=== PATIENT | female | born 1960 | race Caucasian/White ===

== ENCOUNTER 2017-03-31 10:46 | Emergency (ER) | payer BC ==
[2017-03-31 11:16] VITALS: BP 110/67
--- NOTE | 2017-03-31 11:28 | UC ---
Complaint Female HPI - HPI Summary HPI Summary: complaint of cyst on left labia that started approx 7 days ago went to PCP on 03/31/17 dx with cyst started on ceftin and warm compresses cyst isn't bigger but feels more tender tenderness in left groin has continued cannot work tonight d/t pain taking tylenol without relief denies fever - History Of Current Complaint Chief Complaint: UCGU Stated Complaint: PERSONAL Time Seen by Provider: 03/31/17 11:05 Hx Obtained From: Patient Hx Last Menstrual Period: 2 yrs - Allergies/Home Medications Allergies/Adverse Reactions: Allergies Allergy/AdvReac Type Severity Reaction Status Date / Time Lisinopril AdvReac Coughing Verified 03/31/17 11:10 NSAIDs AdvReac Bleeding Verified 03/31/17 11:10 Home Medications: Home Medications Acetaminophen TAB* [Tylenol TAB*] 325 mg PO Q4H PRN 03/31/17 [History Confirmed 03/31/17] Calcium Carbonate-Vitamin D [Calcium 600 + D 600-400 mg-Unit] 1 tab PO 1200 08/07 [History Confirmed 03/31/17] Cyanocobalamin TAB* [Vitamin B12 TAB*] 1,250 mcg PO QAM 03/31/17 [History Confirmed 03/31/17] Escitalopram (NF) [Lexapro 10 mg (NF)] 10 mg PO 1200 03/31/17 [History Confirmed 03/31/17] Ferrous Sulfate TAB* 325 mg PO 1200 03/31/17 [History Confirmed 03/31/17] Misoprostol TAB* [Cytotec TAB*] 200 mcg PO QID 03/31/17 [History Confirmed 03/31] Pantoprazole TAB (NF) [Protonix TAB (NF)] 40 mg PO BID 03/31/17 [History Confirmed 03/31/17] traZODone TAB* [Desyrel TAB*] 50 mg PO BEDTIME 03/31/17 [History Confirmed 03/31] PMH/Surg Hx/FS Hx/Imm Hx Previously Healthy: No - labial cyst GI/ History: Gastroesophageal Reflux - Surgical History Surgical History: Yes Surgery Procedure, Year, and Place: Gastric Bypass, 2012, [facility]. Herniorrhaphies x 3. Tubal Ligation. Breast Augmentation and Tummy Tuck - Family History Known Family History: Positive: None Negative: Cardiac Disease, Hypertension, Diabetes - Social History Occupation: Employed Full-time Lives: With Family Alcohol Use: Occasionally Substance Use Type: None Smoking Status (MU): Never Smoked Tobacco - Immunization History Most Recent Influenza Vaccination: July 2016 Review of Systems Constitutional: Negative Skin: Other - cyst lef tlabia Eyes: Negative ENT: Negative Respiratory: Negative Cardiovascular: Negative Gastrointestinal: Negative Genitourinary: Negative Motor: Negative Neurovascular: Negative Musculoskeletal: Negative Neurological: Negative Psychological: Negative All Other Systems Reviewed And Are Negative: Yes Physical Exam Triage Information Reviewed: Yes Appearance: Well-Nourished, Pain Distress Vital Signs: Initial Vital Signs Temp 98.3 F 03/31/17 11:06 Pulse 64 03/31/17 11:06 Resp 16 03/31/17 11:06 BP 110/67 03/31/17 11:06 Pulse Ox 100 03/31/17 11:06 Vital Signs Reviewed: Yes Eyes: Positive: Conjunctiva Clear ENT: Positive: Pharynx normal, TMs normal Neck: Positive: No Lymphadenopathy Respiratory: Positive: Lungs clear, Normal breath sounds, No respiratory distress, No accessory muscle use Cardiovascular: Positive: RRR, No Murmur, Pulses Normal Abdomen Description: Positive: Nontender, Soft Bowel Sounds: Positive: Present Musculoskeletal: Positive: No Edema Psychological Exam: Normal Skin Exam: Other - left labia- large Procedures - Incision and Drainage Anesthesia: Topical Instrument(s): Needle Packing: Other - sterile dressing Complaint Female Dx - Course Course Of Treatment: exam completed. I & D of bartholin cysts with needle yielded large amount of serosanguinous fluid- abscess decompressed. culture sent. will change from ceftin to bactrim. tylenol #3 for pain and followup with PCP on Sunday04/02/17 - Differential Dx/Diagnosis Differential Diagnosis/HQI/PQRI: Bartholin Cyst Provider Diagnoses: bartholin cysts Left labia Discharge - Discharge Plan Condition: Stable Disposition: HOME Prescriptions: Acetaminop/Codeine 30 MG TAB* [Tylenol/Codeine 30 MG TAB*] 1 tab PO Q6H PRN #12 tab MDD 4 PRN Reason: Pain Sulfamethox/Trimethoprim DS* [Bactrim DS 800/160 TAB*] 1 tab PO BID #14 tab Patient Education Materials: Bartholin Cyst (ED) Forms: *Work Release Referrals: Mundo Espino MD [Primary Care Provider] - Additional Instructions: Please stop ceftin and start Bactrim as directed continue to use warm washcloth or sitzbath 2-3x day Increase fluids and rest Take acetaminophen or ibuprofen for fever or pain Please review your discharge instructions. If your symptoms do not improve please call your primary care provider or return to urgent care.
[2017-03-31] MEDS ORDERED: Lidocaine 2% JELLY* 6 ML JELLY TOPICAL ONE (11:36)
[2017-03-31] MEDS ORDERED: Lidocaine 2.5%/Prilocain 2.5%* 5 GM TUBE ONE (11:38)
[2017-03-31] MEDS ORDERED: Lidocaine 2.5%/Prilocain 2.5%* 5 GM TUBE TOPICAL ONE (11:42)
--- NOTE | 2017-04-02 11:43 | UC ---
Progress - Progress Note Progress Note: please notify pt of culture results
== END 2017-03-31 12:24 | disposition home or self-care (01) ==
LOC: UCCORT 10:46
DX: N75.0 Cyst of Bartholin's gland (principal); K21.9 Gastro-esophageal reflux disease without esophagitis
CPT/HCPCS: 56405; 56420; 87070; 87077; 87186; 99212; A9270-GY; G0463

== ENCOUNTER 2017-06-19 12:51 | Emergency (ER) | payer BC ==
[2017-06-19 14:15] VITALS: BP 125/80
--- NOTE | 2017-06-19 14:46 | RAD ---
Indication: Right knee pain. 4 views of the right knee demonstrates joint space narrowing in the medial compartment. No fracture is identified. No joint effusion is noted. IMPRESSION: Joint space narrowing medial compartment of the right knee without fracture.
--- NOTE | 2017-06-19 14:54 | UC ---
Knee Pain HPI - HPI Summary HPI Summary: Pt reports that 2 days ago she tripped and fell over a dog/baby gate and fell onto hands and knees from standing position.Pt reports that right knee is swollen, brusied and she experiences sudden onset of sharp shooting pains while ambulating. Pt is concerned about possible fracture - History of Current Complaint Chief Complaint: UCLowerExtremity Stated Complaint: RIGHT KNEE PAIN S/P FALL Time Seen by Provider: 06/19/17 14:18 Hx Obtained From: Patient Hx Last Menstrual Period: 2 yrs ?: No Onset/Duration: Sudden Onset Severity Initially: Mild Severity Currently: Mild Character: Sharp, Dull Aggravating Factor(s): Prolonged Standing Alleviating Factor(s): Rest, Position Associated Signs And Symptoms: Positive: Swelling, Bruising Able to Bear Weight: Yes - Risk Factors Septic Arthritis Risk Factor: Negative Gout Risk Factor: Age ^ 40 - Allergies/Home Medications Allergies/Adverse Reactions: Allergies Allergy/AdvReac Type Severity Reaction Status Date / Time Lisinopril AdvReac Coughing Verified 06/19/17 14:06 NSAIDs AdvReac Bleeding Verified 06/19/17 14:06 PMH/Surg Hx/FS Hx/Imm Hx Previously Healthy: Yes - Surgical History Surgical History: Yes Surgery Procedure, Year, and Place: Gastric Bypass, 2012, [facility]. Herniorrhaphies x 3. Tubal Ligation. Breast Augmentation and Tummy Tuck - Family History Known Family History: Negative: Cardiac Disease, Hypertension, Diabetes - Social History Occupation: Employed Full-time Lives: With Family Alcohol Use: Rare Substance Use Type: None Smoking Status (MU): Never Smoked Tobacco Have You Smoked in the Last Year: No - Immunization History Most Recent Influenza Vaccination: July 2016 Review of Systems Constitutional: Negative Skin: Bruising Eyes: Negative ENT: Negative Respiratory: Negative Cardiovascular: Negative Gastrointestinal: Negative, Abdominal Pain Genitourinary: Negative Motor: Other - pain with ROm rigth knee Neurovascular: Negative Musculoskeletal: Arthralgia - right knee, Edema - right knee, Other: - bruising right knee Neurological: Negative Psychological: Negative All Other Systems Reviewed And Are Negative: Yes Physical Exam Triage Information Reviewed: Yes Appearance: Well-Appearing Vital Signs: Initial Vital Signs Temp 98.7 F 06/19/17 14:07 Pulse 82 06/19/17 14:07 Resp 18 06/19/17 14:07 BP 125/80 06/19/17 14:07 Pulse Ox 100 06/19/17 14:07 Eye Exam: Normal ENT Exam: Normal Neck exam: Normal Respiratory Exam: Normal Cardiovascular Exam: Normal Musculoskeletal Exam: Other Musculoskeletal: Positive: Edema @ - anterior right knee, Other: - bruising right knee anterior distal to knee cap Neurological Exam: Normal Psychological Exam: Normal Skin Exam: Other - bruising, right anterior knee, distal to knee cap Knee Pain Course/Dx - Differential Dx/Diagnosis Differential Diagnosis/HQI/PQRI: Contusion, Fracture (Closed) Provider Diagnoses: right knee contusion Discharge - Discharge Plan Condition: Stable Disposition: HOME Patient Education Materials: Contusion in Adults (ED), Knee Pain (ED) Referrals: Mary Wetzel MD [Primary Care Provider] - If Needed
== END 2017-06-19 15:06 | disposition home or self-care (01) ==
LOC: UCCORT 12:51
DX: S80.01XA Contusion of right knee, initial encounter (principal); W18.09XA Striking against other object with subsequent fall, initial encounter; Y93.9 Activity, unspecified; Y92.9 Unspecified place or not applicable; Z98.84 Bariatric surgery status; Z88.6 Allergy status to analgesic agent
CPT/HCPCS: 99211; G0463

== ENCOUNTER 2017-10-22 19:47 | Emergency (ER) | payer BC ==
--- NOTE | 2017-10-22 20:01 | UC ---
Upper Extremity HPI - HPI Summary HPI Summary: 57 YEAR OLD FEMALE PRESENTS WITH COMPLAINS OF MASS ON HER RIGHT INDEX FINGER. - History of Current Complaint Stated Complaint: RIGHT INDEX FINGER PAIN Time Seen by Provider: 10/22/17 20:00 Hx Obtained From: Patient Hx Last Menstrual Period: 2 yrs Onset/Duration: Gradual Onset, Lasting Days Severity Initially: Moderate Severity Currently: Moderate Pain Scale Used: 0-10 Numeric - 0 - Allergies/Home Medications Allergies/Adverse Reactions: Allergies Allergy/AdvReac Type Severity Reaction Status Date / Time Lisinopril AdvReac Coughing Verified 10/22/17 20:07 NSAIDs AdvReac Bleeding Verified 10/22/17 20:07 Home Medications: Home Medications Alendronate (NF) [Fosamax (NF)] 35 mg PO Q7D 10/22/17 [History Confirmed ] PMH/Surg Hx/FS Hx/Imm Hx Previously Healthy: Yes - Surgical History Surgical History: Yes Surgery Procedure, Year, and Place: Gastric Bypass, 2012, [facility]. Herniorrhaphies x 3. Tubal Ligation. Breast Augmentation and Tummy Tuck - Family History Known Family History: Positive: None Negative: Cardiac Disease, Hypertension, Diabetes - Social History Alcohol Use: Rare Substance Use Type: None Smoking Status (MU): Never Smoked Tobacco Have You Smoked in the Last Year: No - Immunization History Most Recent Influenza Vaccination: July 2016 Review of Systems Constitutional: Negative Skin: Negative Eyes: Negative ENT: Negative Respiratory: Negative Cardiovascular: Negative Gastrointestinal: Negative Genitourinary: Negative Motor: Negative Neurovascular: Negative Musculoskeletal: Other: - RIGHT INDEX FINGER CYST/MASS Neurological: Negative Psychological: Negative All Other Systems Reviewed And Are Negative: Yes Physical Exam Triage Information Reviewed: Yes Vital Signs Reviewed: Yes Eye Exam: Normal ENT Exam: Normal Dental Exam: Normal Neck exam: Normal Neck: Positive: 1 Respiratory Exam: Normal Cardiovascular Exam: Normal Abdominal Exam: Normal Musculoskeletal: Positive: Other: - RIGHT INDEX FINGER CYST/MASS Neurological Exam: Normal Psychological Exam: Normal Skin Exam: Normal Upper Extremity Course/Dx - Differential Dx/Diagnosis Provider Diagnoses: RIGHT INDEX TRIGGER FINGER. RIGHT INDEX FINGER CYST/MASS Discharge - Discharge Plan Condition: Stable Disposition: HOME Prescriptions: Methylprednisolone [Medrol Dosepak 4 MG*] 4 mg PO .SEE ALEXUS INSTRUCTION #21 tab Patient Education Materials: Trigger Finger (ED) Referrals: Krish Harman MD [Medical Doctor] - Mary Wetzel MD [Primary Care Provider] -
[2017-10-22 20:07] VITALS: BP 127/81
[2017-10-22] MEDS ORDERED: predniSONE TAB* 20 MG PO ONE (20:39)
--- NOTE | 2017-10-22 20:41 | RAD ---
Indication: Painful pea size lump proximal phalanx of RIGHT index finger for 4 days. No preceding injury. Comparison: No relevant prior exams available on the [facility] for comparison. Technique: 4 views RIGHT index finger Report: Soft tissue swelling most prominent along the radial and volar aspect from the level of the proximal phalanx distal. No subcutaneous emphysema or conspicuous foreign body. Negative for fracture or malalignment. Minimal interphalangeal joint osteoarthritis. 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 IMPRESSION: Negative for fracture. Nonspecific soft tissue swelling.
[2017-10-22] MEDS ORDERED: methylPREDNISolone 125 MG* 2 ML VIAL IM ONE (20:44)
== END 2017-10-22 21:13 | disposition home or self-care (01) ==
LOC: UCCORT 19:47
DX: M65.321 Trigger finger, right index finger (principal); R22.31 Localized swelling, mass and lump, right upper limb; Z88.8 Allergy status to other drugs, medicaments and biological substances; Z88.6 Allergy status to analgesic agent
CPT/HCPCS: 73140; 96372; 99212; G0463; J2930; J7512

== ENCOUNTER 2017-11-19 09:25 | Day surgery (SDC) | payer BC ==
[~2017-11-19 09:25] MED LIST: Buffered Lidocaine 0.9% SYRIN* 5 ML/SYR SYRINGE INTRADERM ONE; Bupivacaine 0.25% SDV* 30 ML ONE; Dexamethasone IV* 4 MG/ML 1 ML (4 MG) IV SLOW PU ONE
[2017-11-19] MEDS ORDERED: Buffered Lidocaine 0.9% SYRIN* 5 ML/SYR SYRINGE ONE (09:37)
[2017-11-19] MEDS ORDERED: Dexamethasone IV* 4 MG/ML 1 ML (4 MG) ONE (09:37)
[2017-11-19] MEDS ORDERED: fentaNYL* 50 MCG/ML 2 ML VIAL (100 MCG VIAL) IV PRN (11:02)
[2017-11-19] MEDS ORDERED: oxyCODONE/Acetamin 5/325 MG* TAB PO PRN (11:02)
[2017-11-19] MEDS ORDERED: DiMENhydriNATE IV* 50 MG/ML VIAL IV PUSH PRN (11:02)
[2017-11-19] MEDS ORDERED: Naloxone* 0.4 MG/ML 1 ML VIAL IV PRN (11:02)
[2017-11-19] MEDS ORDERED: Ondansetron INJ* 2 MG/ML VIAL IV PRN (11:02)
[2017-11-19] MEDS ORDERED: fentaNYL* 50 MCG/ML 2 ML VIAL (100 MCG VIAL) ONE (11:08)
[2017-11-19] MEDS ORDERED: Midazolam* 1 MG/ML 10 ML VIAL (10 MG) ONE (11:09)
[2017-11-19] MEDS ORDERED: Propofol* 10 MG/ML 20 ML BTL IV PUSH ONE (11:09)
[2017-11-19] MEDS ORDERED: Ondansetron INJ* 2 MG/ML VIAL ONE (11:09)
[2017-11-19 12:59] VITALS: BP 138/88
--- NOTE | 2017-11-20 13:46 | OP ---
DATE OF OPERATION: 11/19/17 - SDS DATE OF : 64 SURGEON: Krish Harman MD REGULATORY COMPLIANCE OFFICER: SANTIAGO Pete ANESTHESIOLOGIST: Chacorta Monge MD ANESTHESIA: Local MAC. PRE-OP DIAGNOSIS: Right index finger mass. 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 OPERATIVE PROCEDURE: Excision of right index finger soft tissue mass. INDICATIONS: Josephine is 57. The mass is right over the volar aspect of the proximal phalanx. It is quite bothersome. She wanted to excise it. We talked about risks and benefits. ESTIMATED BLOOD LOSS: 1 mL. COMPLICATIONS: None. FINDINGS: See above and below. DESCRIPTION OF PROCEDURE: Josephine was seen in the preoperative holding area. The correct side, site, and procedure were identified. We came back to the operating room. The arm was prepped and draped in the usual fashion. A time- out was performed. The arm was exsanguinated. The tourniquet inflated to 250 mmHg. I made an oblique incision over the proximal aspect of the proximal phalanx to the right index finger. Dissection was carried down and just above the tendon sheath, there was about 6- to 8-mm nodule that was a coagulated AVM. It was excised in its entirety. The periphery was cauterized. There were a couple of smaller ones distal to that that were also excised. Once I had everything nicely removed, we irrigated out the wound. Skin was closed with 4-0 nylon suture. Wound was dressed with Xeroform, 1-inch David, and Coban dressing. Tourniquet was deflated and the hand pinked up immediately. I had performed digital block with 0.25% Marcaine prior to making skin incision. [id number]/[facility] #: [id number] MTDD
== END 2017-11-19 13:33 | disposition home or self-care (01) ==
LOC: OR 09:25
PROVIDERS: ATTEND Orthopaedic Surgery Hand Surgery
DX: M67.441 Ganglion, right hand (principal); E78.5 Hyperlipidemia, unspecified; K21.9 Gastro-esophageal reflux disease without esophagitis; M19.90 Unspecified osteoarthritis, unspecified site
CPT/HCPCS: 88305; J1100; J2250; J2405; J2704; J3010

== ENCOUNTER 2018-06-05 17:03 | Emergency (ER) | payer BC, OTHER ==
[2018-06-05 18:13] VITALS: BP 154/96
--- NOTE | 2018-06-05 18:46 | UC ---
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 Pt enies LOC, or hitting head. Pt states that neck hurt " a little bit" after hair being pulled but woke this morning with neck stiffness and pain . - History of Current Complaint Chief Complaint: UCGeneralIllness Stated Complaint: WC - NECK INJURY (YESTERDAY) Time Seen by Provider: 06/05/18 18:37 Hx Obtained From: Patient Hx Last Menstrual Period: 2 yrs ?: No Onset/Duration Of Injury/Symptoms: Hours Timing: Constant Onset/Duration: Gradual Onset, Still Present Severity: Moderate Pain Intensity: 5 Location: Diffuse Character: Dull, Aching, Stiff Aggravating Factors: Position, Movement Alleviating Factors: Nothing Associated Signs & Symptoms: Positive: Negative - Risk Factors Meningitis Risk Factors: Negative - Allergies/Home Medications Allergies/Adverse Reactions: Allergies Allergy/AdvReac Type Severity Reaction Status Date / Time NSAIDS (Non-Steroidal Allergy Severe GI bleeding Verified 06/05/18 18:17 Anti-Inflamma lisinopril AdvReac Coughing Verified 06/05/18 18:17 Home Medications: Home Medications Loratadine [Claritin 10 MG CAP] 10 mg PO DAILY 06/05/18 [History Confirmed 06/05] PMH/Surg Hx/FS Hx/Imm Hx Previously Healthy: Yes - Surgical History Surgical History: Yes Surgery Procedure, Year, and Place: Gastric Bypass, 2012, [facility]. Herniorrhaphies x 3. Tubal Ligation. Breast Augmentation and Tummy Tuck [place] - Family History Known Family History: Positive: None Negative: Cardiac Disease, Hypertension, Diabetes - Social History Occupation: Employed Full-time Lives: With Family Alcohol Use: Occasionally Substance Use Type: None Smoking Status (MU): Never Smoked Tobacco Have You Smoked in the Last Year: No - Immunization History Most Recent Influenza Vaccination: July 2016 Review Of Systems Constitutional: Positive: Negative Skin: Positive: Negative Eyes: Positive: Negative ENT: Positive: Negative Respiratory: Positive: Negative Cardiovascular: Positive: Negative Gastrointestinal: Positive: Negative Genitourinary: Positive: Negative Musculoskeletal: Positive: Decreased ROM - neck, Myalgia - neck Neurological: Positive: Negative Psychological: Positive: Negative All Other Systems Reviewed And Are Negative: No Physical Exam Triage Information Reviewed: Yes Appearance: Well-Appearing, Pain Distress - with neck rom Vital Signs: Initial Vital Signs Temp 98.3 F 06/05/18 18:07 Pulse 57 06/05/18 18:07 Resp 17 06/05/18 18:07 BP 154/96 06/05/18 18:07 Pulse Ox 100 06/05/18 18:07 Vital Signs Reviewed: Yes Eye Exam: Normal ENT: Positive: Hearing grossly normal Neck: Positive: Other: - decreased ROM due to myalgia Respiratory: Positive: No respiratory distress Musculoskeletal: Positive: ROM Limited @ - neck Neurological Exam: Normal Psychological Exam: Normal Skin Exam: Normal Neck Pain Course/Dx - Differential Dx/Diagnosis Differential Dx/HQI/PQRI: Sprain, Strain, Torticollis Provider Diagnoses: cervical strain Discharge - Sign-Out/Discharge Documenting (check all that apply): Patient Departure - Discharge Plan Condition: Stable Disposition: HOME Prescriptions: Cyclobenzaprine TAB* [Flexeril 10 MG TAB*] 10 mg PO TID PRN #9 tab PRN Reason: Pain Patient Education Materials: Cervical Strain (ED) Forms: *Work Release Referrals: Mary Wetzel MD [Primary Care Provider] - If Needed Additional Instructions: Per institutional requirements, I have reviewed the chart, however, I was not consulted specifically or made aware of this patient by the above midlevel provider. I did not personally evaluate, interact with , or disposition this patient. - Billing Disposition and Condition Condition: STABLE Disposition: Home
== END 2018-06-05 18:54 | disposition home or self-care (01) ==
LOC: UCCORT 17:03
DX: S16.1XXA Strain of muscle, fascia and tendon at neck level, initial encounter (principal); Y04.8XXA Assault by other bodily force, initial encounter; Y93.F9 Activity, other caregiving; Y92.199 Unspecified place in other specified residential institution as the place of occurrence of the external cause; Y99.0 Civilian activity done for income or pay; Z88.6 Allergy status to analgesic agent; Z88.8 Allergy status to other drugs, medicaments and biological substances
CPT/HCPCS: 99212; G0463